=== PATIENT | female | born 1955 | race Caucasian/White ===

== ENCOUNTER 2022-09-23 09:20 | Outpatient (CLI) | payer MEDICARE, SELFPAY ==
[2022-09-23 12:30] LABS: Cholesterol* 226 mg/dL (90-199); HDL Cholesterol* 65 mg/dL (>=50); LDL Cholesterol Calculated 130 mg/dL (<100); Triglycerides* 157 mg/dL (40-149)
== END 2022-09-23 09:21 | disposition home or self-care (01) ==
LOC: NFLDREF 09:21
PROVIDERS: PCP Family Medicine; Visit Provider Family Medicine
DX: Z00.00 Encounter for general adult medical examination without abnormal findings (principal); E78.5 Hyperlipidemia, unspecified; I10 Essential (primary) hypertension
CPT/HCPCS: 80061

== ENCOUNTER 2023-11-05 07:48 | Day surgery (SDC) | payer MEDICARE, SELFPAY ==
--- OUTSIDE RECORDS SUMMARY | 2023-11-05 07:51 | XMS_ITS | Clinical Summary ---
Author Name Unknown Organization [facility] Address [place], [place] [address] Care Team Providers Care Infant Babysitter Name Role Phone Desiree Avila QUARTZ MINER Primary Care Provider Deja vailable Allergies Active Allergy Reactions Criticality Noted Date Comments Banana Nausea And Vomiting 05/30/2006 Kiwi 06/12/2007 Latex Other - Describe In Comment Field 05/30/2006 tingling lips when blowing up balloons Unlisted Allergen (Include Detail In Comments) 06/12/2007 Melons, Honeydew Sulfa (Sulfonamide Antibiotics) Contact Dermatitis 05/30/2006 Medications No known medications Active Problems Problem Noted Date Diagnosed Date Palpitations Tobacco use disorder Immunizations Name Administration Dates Next Due Td (Age >=7 Years) 12/31/1999 Tdap 05/14/2008 Family History Medical History Relation Name Comments Good Health Brother 2 Hypertension Father Cancer-prostate Maternal Grandfather Cancer-breast Maternal Grandmother early 80's with mastectomy Cancer-breast Mother Cancer-breast Paternal Aunt Genetic Paternal Grandfather FATHER HAD AAA REPAIRED 2001 Other Paternal Grandmother sleep a pnea Good Health Sister 3 Other Sister 4 hernia - having repaired Relation Name Status Comments Brother 1 Alive Brother 2 Daughter Alive Father Alive Maternal Grandfather Maternal Grandmother Mother Alive Paternal Aunt Paternal Grandfather Paternal Grandmother Sister 1 Alive Sister 2 Alive Sister 3 Sister 4 Social History Tobacco Use Types Packs/Day Years Used Date Smoking Tobacco: Every Day Cigarettes 1 29 Smokeless Tobacco: Never Tobacco Cessation:Ready to Q uit: No; Counseling Given: Yes Comments:Smoking History Packs/day: 1 Alcohol Use Standard Drinks/Week Comments Yes 0 (1 standard drink = 0.6 oz pur e alcohol) 1-rum & coke daily Sex and Gender Information Value Date Recorded Sex Assigned at Not on file Gender Identity Not on file Sexual Orientation Not on file Obstetrics History Para Term AB IAB SAB Ectopic Multiple Livin g Live Births 3 1 1 0 1 0 1 0 0 1 1 Date Outcome GA Total Labor Labor/2nd/3rd Weight Sex Delivery Anes PTL Carmenza A1 A5 Name Cl in SAB Term 07/06 40w 0d 8h 00m/ 3.63 kg (8 lb) F Vag Carlie ng Princess Last Filed Vital Signs Vital Sign Reading Time Taken Comments Blood Pressure 120/82 11/01/2011 9:59 AM [employer] Pulse 80 11/01/2011 9:59 AM [employer] Temperature - - Respiratory Rate 12 06/12/2007 11:05 AM CDT Oxygen Saturation 97% 05/25/2004 12:00 AM CDT Inhaled Oxygen Concentration - - Weight 58.5 kg (129 lb) 11/01/2011 9:59 AM [employer] Height 173.5 cm (5' 8.3) 11/01/2011 9:59 AM [employer] Body Mass Index 19.44 11/01/2011 9:59 AM [employer] Plan of Treatment Health Maintenance Due Date Last Done Comments COVID-19 vaccine series (#1) 05/17/1956 Depression screening for age 12+ 1968 BMI (ht and wt on same day) for age 18+ 1974 Hepatitis C screening for ag e 18-79 1974 Colonoscopy through age 75 2001 Zoster (shingles) series for age 50+ (1 of 2) 2006 Lipids for age 45-75 06/12/2012 06/12/2007, 05/30/20 06 Mammogram for age 45-75 11/01/2012 11/01/19 12, 11/01/2011, 06/12/2007, Additional history exists Tetanus booster 11/01/2021 11/01/2011 (Comp leted outside of [facility]), 05/14/2008, 12/31/1999 DEXA/DXA scan for age 65+ 2021 Pneumococcal series for age 65+ (1 of 1 - PCV) 2021 Influenza for age 65+ 05/16/2023 Tdap Completed 05/14/2008 Care Teams Infant Babysitter Relationship Specialty Start Date End Date Desiree Avila NP PCP - General 05/28/06
[2023-11-05] MEDS: TETRACAINE 0.5% OPHTH 1 DROP EYE-LEFT ×2 (08:27→08:39)
[2023-11-05] MEDS: KETOROLAC OPHTH 0.5% 1 DROP EYE-LEFT ×3 (08:37→09:03)
[2023-11-05 08:57] VITALS: BP 122/81; PULSE 64; RESP 16; TEMP 36.2; O2SAT 98
[2023-11-05 08:58] VITALS: BMI 19.3
[2023-11-05] MEDS: SODIUM CHLORIDE 0.9 % (FLUSH) 10 ML SYRINGE IVF (09:03)
[2023-11-05] MEDS: TETRACAINE 0.5% OPHTH 2 DROP EYE-LEFT (09:29)
[2023-11-05] MEDS: BALANCED SALT IRRIG SOLN 15 ML EYE-LEFT (09:33)
--- NOTE | 2023-11-05 09:34 | W.ANESCHARGE ---
Anesthesia Charges Start Date/Time Anesthesia Start Date: 11/05/23 Anesthesia Start Time: 09:26 Stop Date/Time Anesthesia Stop Date: 11/05/23 Anesthesia Stop Time: 10:02
[2023-11-05 09:58] VITALS: BP 123/80; PULSE 61; RESP 14; TEMP 36.6; O2SAT 98
--- NOTE | 2023-11-05 10:05 | W.PM.OPTPROC ---
Procedure Note Date of procedure: 11/05/23 Will [facility] bill your pro fee for this procedure?: Yes Procedure Description: SURGEON: Megan Barnes MD PREOPERATIVE DIAGNOSIS: Nuclear sclerotic cataract, left eye. POSTOPERATIVE DIAGNOSIS: Nuclear sclerotic cataract, left eye. NAME OF OPERATION: Phacoemulsification of cataract with posterior chamber intraocular lens implantation in the left eye. ANESTHESIA: Topical. ESTIMATED BLOOD LOSS: Less than 2 cc. COMPLICATIONS: None. PATHOLOGY SPECIMEN: None. INDICATIONS: See consult note for details. The risks, benefits and alternatives of the procedure were explained to the patient, who elected to proceed and signed informed consent to do so. PROCEDURE: The patient was brought to the pre-holding area where the left eye was identified as the operative eye. I placed my initials above this eye. The patient received eye drops consisting of 0.5% tetracaine, 1% tropicamide, 10% phenylephrine, and 0.5% ketorolac. The patient was then brought to the operating room where the left eye was again identified as the operative eye. The eye was prepped with Betadine and draped in the usual sterile ophthalmic fashion. A #15 super-sharp blade was used to create a paracentesis site. 1% non-preserved intracameral lidocaine was injected into the anterior chamber. Endocoat was injected into the anterior chamber. A 2.4 mm keratome was used to create a three-plane self-sealing incision 1 mm anterior to the temporal limbus. A cystotome was used to create an anterior capsular leaflet. The Utrata forceps were used to extend this to form a continuous curvilinear capsulorrhexis. Hydrodissection was performed. The cataract was removed with phacoemulsification using the [id number] technique. The irrigation and aspiration tip was used to remove the remaining cortex. Healon was injected into the capsular bag. An GABBY ZCB00 intraocular lens of 14.0 diopters was injected into the capsular bag. The irrigation and aspiration tip was used to remove the remaining viscoelastic. Balanced salt solution on a cannula was used to hydrate the wound, and the wound was found to be watertight. The pupil was noted to be round. DISPOSITION: The patient was taken to the recovery room and discharged to home in stable condition. The patient was instructed to call me or go to the emergency department with any sudden change, including dramatic loss of vision, severe pain in the eye or eyebrow region, nausea, or vomiting. The patient will follow up in the clinic tomorrow morning.
--- NOTE | 2023-11-05 10:07 | W.ANESCHARGE ---
Anesthesia Charges Start Date/Time Anesthesia Start Date: 11/05/23 Anesthesia Start Time: 09:26 Stop Date/Time Anesthesia Stop Date: 11/05/23 Anesthesia Stop Time: 10:02
== END 2023-11-05 10:29 | disposition home or self-care (01) ==
LOC: OR 07:49
PROVIDERS: PCP Family Medicine; Visit Provider Ophthalmology
PROC: (CPT 66984; principal; 2023-11-05 08:15)
DX: H25.12 Age-related nuclear cataract, left eye (principal)
CPT/HCPCS: 66984; 00142; A9270; J2250; V2632

== ENCOUNTER 2023-11-19 08:05 | Day surgery (SDC) | payer MEDICARE, SELFPAY ==
[2023-11-19] MEDS: TETRACAINE 0.5% OPHTH 1 DROP EYE-RIGHT ×2 (08:17→08:25)
[2023-11-19 08:23] VITALS: BMI 19.1
[2023-11-19] MEDS: KETOROLAC OPHTH 0.5% 1 DROP EYE-RIGHT ×3 (08:23→08:37)
[2023-11-19 08:27] VITALS: BP 119/70; PULSE 63; RESP 20; TEMP 36.1; O2SAT 99
[2023-11-19] MEDS: SODIUM CHLORIDE 0.9 % (FLUSH) 10 ML SYRINGE IVF (08:44)
[2023-11-19] MEDS: TETRACAINE 0.5% OPHTH 2 DROP EYE-RIGHT (09:12)
[2023-11-19] MEDS: BALANCED SALT IRRIG SOLN 15 ML EYE-RIGHT (09:17)
--- NOTE | 2023-11-19 09:20 | W.ANESCHARGE ---
Anesthesia Charges Start Date/Time Anesthesia Start Date: 11/19/23 Anesthesia Start Time: 09:10 Stop Date/Time Anesthesia Stop Date: 11/19/23 Anesthesia Stop Time: 09:43
--- NOTE | 2023-11-19 09:45 | W.PM.OPTPROC ---
Procedure Note Date of procedure: 11/19/23 Will [facility] bill your pro fee for this procedure?: Yes Procedure Description: SURGEON: Megan Barnes MD PREOPERATIVE DIAGNOSIS: Nuclear sclerotic cataract, right eye. POSTOPERATIVE DIAGNOSIS: Nuclear sclerotic cataract, right eye. NAME OF OPERATION: Phacoemulsification of cataract with posterior chamber intraocular lens implantation in the right eye. ANESTHESIA: Topical. ESTIMATED BLOOD LOSS: Less than 2 cc. COMPLICATIONS: None. PATHOLOGY SPECIMEN: None. INDICATIONS: See consult note for details. The risks, benefits and alternatives of the procedure were explained to the patient, who elected to proceed and signed informed consent to do so. PROCEDURE: The patient was brought to the pre-holding area where the right eye was identified as the operative eye. I placed my initials above this eye. The patient received eye drops consisting of 0.5% tetracaine, 1% tropicamide, 10% phenylephrine, and 0.5% ketorolac. The patient was then brought to the operating room where the right eye was again identified as the operative eye. The eye was prepped with Betadine and draped in the usual sterile ophthalmic fashion. A #15 super-sharp blade was used to create a paracentesis site. 1% non-preserved intracameral lidocaine was injected into the anterior chamber. Endocoat was injected into the anterior chamber. A 2.4 mm keratome was used to create a three-plane self-sealing incision 1 mm anterior to the temporal limbus. A cystotome was used to create an anterior capsular leaflet. The Utrata forceps were used to extend this to form a continuous curvilinear capsulorrhexis. Hydrodissection was performed. The cataract was removed with phacoemulsification using the [id number] technique. The irrigation and aspiration tip was used to remove the remaining cortex. Healon was injected into the capsular bag. An GABBY ZCB00 intraocular lens of 15.5 diopters was injected into the capsular bag. The irrigation and aspiration tip was used to remove the remaining viscoelastic. Balanced salt solution on a cannula was used to hydrate the wound, and the wound was found to be watertight. The pupil was noted to be round. DISPOSITION: The patient was taken to the recovery room and discharged to home in stable condition. The patient was instructed to call me or go to the emergency department with any sudden change, including dramatic loss of vision, severe pain in the eye or eyebrow region, nausea, or vomiting. The patient will follow up in the clinic tomorrow morning.
[2023-11-19 09:52] VITALS: BP 102/69; PULSE 62; RESP 16; TEMP 36.9; O2SAT 97
--- NOTE | 2023-11-19 10:42 | W.ANESCHARGE ---
Anesthesia Charges Start Date/Time Anesthesia Start Date: 11/19/23 Anesthesia Start Time: 09:10 Stop Date/Time Anesthesia Stop Date: 11/19/23 Anesthesia Stop Time: 09:43
== END 2023-11-19 09:59 | disposition home or self-care (01) ==
PROVIDERS: PCP Family Medicine; Visit Provider Ophthalmology
PROC: (CPT 66984; principal; 2023-11-19 08:15)
DX: H25.11 Age-related nuclear cataract, right eye (principal)
CPT/HCPCS: 66984; 00142; A9270; J2250; J3010; V2632